=== PATIENT | male | born 1995 | race Caucasian/White ===

== ENCOUNTER 2018-10-03 15:54 | Emergency (ER) | payer BC, OTHER ==
[~2018-10-03] VITALS: Ht 188 cm; Wt 221.1 kg
[2018-10-03] MEDS ORDERED: ASPIRIN 81 MG CHEW (CHILDREN'S ASA) PO ONE (16:15)
[2018-10-03 16:22] LABS: BASOPHILS # (AUTO) 0.1 10^3/uL (0.0-0.1); BASOPHILS % (AUTO) 1 % (0-10); EOSINOPHILS # (AUTO) 0.1 10^3/uL (0.0-0.3); EOSINOPHILS % (AUTO) 1 % (0-10); HEMATOCRIT 47 % (40-54); HEMOGLOBIN 15.8 G/DL (13.3-17.7); LYMPHOCYTES # (AUTO) 1.6 X 10^3 (1.0-4.0); LYMPHOCYTES % (AUTO) 19 % (12-44); MEAN CORPUSCULAR HEMOGLOBIN 29 PG (25-34); MEAN CORPUSCULAR HGB CONC 33 G/DL (32-36); MEAN CORPUSCULAR VOLUME 88 FL (80-99); MEAN PLATELET VOLUME 11.1 FL (7.4-10.4); MONOCYTES # (AUTO) 0.9 X 10^3 (0.0-1.0); MONOCYTES % (AUTO) 10 % (0-12); NEUTROPHILS % (AUTO) 70 % (42-75); PLATELET COUNT 336 10^3/uL (130-400); RED CELL DISTRIBUTION WIDTH 13.1 % (10.0-14.5); WHITE BLOOD COUNT 8.6 10^3/uL (4.3-11.0)
[2018-10-03 16:41] LABS: ALANINE AMINOTRANSFERASE 48 U/L (0-55); ALBUMIN 4.6 GM/DL (3.2-4.5); ALKALINE PHOSPHATASE 64 U/L (40-136); BUN/CREATININE RATIO 14; CALCIUM 10.2 MG/DL (8.5-10.1); CARBON DIOXIDE 17 MMOL/L (21-32); CHLORIDE 105 MMOL/L (98-107); CREATININE SERUM 0.87 MG/DL (0.60-1.30); GFR ESTIMATED > 60; GLUCOSE 85 MG/DL (70-105); POTASSIUM 4.4 MMOL/L (3.6-5.0); SODIUM 137 MMOL/L (135-145); TOTAL PROTEIN 8.2 GM/DL (6.4-8.2)
--- NOTE | 2018-10-03 16:54 | Diagnostic Imaging Report ---
EXAM: Chest 1 view, AP/PA only. INDICATION: Chest pain. COMPARISON: None. FINDINGS: Normal heart size and central pulmonary vascularity. No focal pulmonary opacity, pleural effusion or pneumothorax. No acute osseous findings. IMPRESSION: No acute cardiopulmonary findings. Dictated by: Dictated on workstation # [id number]
[2018-10-03 17:07] LABS: INR 1.1 (0.8-1.4); PROTHROMBIN TIME PATIENT 14.3 SEC (12.2-14.7)
--- NOTE | 2018-10-03 17:09 | ED Chest Pain ---
General Chief Complaint: Chest Pain Stated Complaint: CHEST POUNDING/L ARM NUMB Nursing Triage Note: PATIENT AMBULATORY TO ER WITH COMPLAINT OF CHEST PAIN TO LEFT CHEST RADIATING INTO THE LEFT ARM. PATIENT STATES HE HAS HAD INTERMITTENT CHEST PAIN FOR SEVERAL WEEKS BUT TODAY IT IS WORSE THAN NORMAL. HE HAS ALSO HAD SHORTNESS OF BREATH AND FATIGUE TODAY. 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 PATIENT IS ALSO COMPLAINING OF INTERMITTENT PAIN TO RIGHT CALF. Nursing Sepsis Screen: No Definite Risk Source: patient Exam Limitations: no limitations History of Present Illness Date Seen by Provider: Oct 03, 2018 Time Seen by Provider: 16:00 Initial Comments This 23-year-old young man presents to the emergency room with chest pain that radiates into his left arm. He has been having intermittently throughout the day and it worsened this afternoon. 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 He felt bad enough that he felt necessary to stop on his chart route and be seen here. He denies any history of heart disease. He does have hypertension and morbid obesity. He is working with his doctor on these issues. His pain is much dissipated now at this time. He rates it as about 3 out of 10. He also complains of some pain in the right calf which she attributes to sciatica. Allergies and Home Medications Allergies Coded Allergies: No Known Drug Allergies (Unverified , 10/03/18) Patient Home Medication List Home Medication List Reviewed: Yes Review of Systems Review of Systems Constitutional: no symptoms reported EENTM: No Symptoms Reported Respiratory: No Symptoms Reported Cardiovascular: See HPI Gastrointestinal: No Symptoms Reported Genitourinary: No Symptoms Reported Musculoskeletal: no symptoms reported Skin: no symptoms reported Psychiatric/Neurological: No Symptoms Reported Endocrine: No Symptoms Reported Hematologic/Lymphatic: No Symptoms Reported Past Ksnfypa-Ntocio-Clknlc Hx Past Med/Social Hx: Reviewed and Corrections made Patient Social History Alcohol Use: Denies Use Recreational Drug Use: No Smoking Status: Never a Smoker 2nd Hand Smoke Exposure: No Recent Foreign Travel: No Contact w/Someone Who Travel: No Recent Infectious Disease Expo: No Recent Hopitalizations: No Immunizations Up To Date PED Vaccines UTD: Yes Seasonal Allergies Seasonal Allergies: No Past Medical History Surgeries: No Respiratory: No Cardiac: Yes Hypertension Neurological: No Genitourinary: No Gastrointestinal: No Musculoskeletal: No Endocrine: Yes (morbid obesity) HEENT: No Cancer: No Psychosocial: No Integumentary: No Blood Disorders: No Physical Exam Vital Signs Vital Signs - First Documented 10/03/18 15:55 Temp 98.4 Pulse 97 Resp 22 B/P (MAP) 183/97 (125) Pulse Ox 97 O2 Delivery Room Air Capillary Refill : Less Than 3 Seconds Height, Weight, BMI Height: 6'2.00" Weight: 487lbs. 8.0oz. 221.577952by; BMI Method:Actual General Appearance: WD/WN, Mild Distress, Obese HEENT: PERRL/EOMI, Normal ENT Inspection Neck: Normal Inspection Respiratory: Lungs Clear, Normal Breath Sounds, No Accessory Muscle Use, No Respiratory Distress, Other (slight tenderness in the left lateral chest wall near the axilla) Cardiovascular: Regular Rate, Rhythm, No Edema, No Murmur Gastrointestinal: Normal Bowel Sounds, Non Tender, Soft Extremity: Normal Capillary Refill, Normal Inspection, Non Tender, No Pedal Edema, Other (negative Yuan) Neurologic/Psychiatric: Alert, Oriented x3, No Motor/Sensory Deficits, Normal Mood/Affect, sleep lab technologist II-XII Norm as Tested Skin: Normal Color, Warm/Dry Progress/Results/Core Measures Results/Orders Lab Results Laboratory Tests Test 10/03/18 16:15 10/03/18 16:49 10/03/18 17:09 Range/Units White Blood Count 8.6 4.3-11.0 10^3/uL Red Blood Count 5.40 4.35-5.85 10^6/uL Hemoglobin 15.8 13.3-17.7 G/DL Hematocrit 47 40-54 % Mean Corpuscular Volume 88 80-99 FL Mean Corpuscular Hemoglobin 29 25-34 PG Mean Corpuscular Hemoglobin Concent 33 32-36 G/DL Red Cell Distribution Width 13.1 10.0-14.5 % Platelet Count 336 130-400 10^3/uL Mean Platelet Volume 11.1 H 7.4-10.4 FL Neutrophils (%) (Auto) 70 42-75 % Lymphocytes (%) (Auto) 19 12-44 % Monocytes (%) (Auto) 10 0-12 % Eosinophils (%) (Auto) 1 0-10 % Basophils (%) (Auto) 1 0-10 % Neutrophils # (Auto) 6.0 1.8-7.8 X 10^3 Lymphocytes # (Auto) 1.6 1.0-4.0 X 10^3 Monocytes # (Auto) 0.9 0.0-1.0 X 10^3 Eosinophils # (Auto) 0.1 0.0-0.3 10^3/uL Basophils # (Auto) 0.1 0.0-0.1 10^3/uL Sodium Level 137 135-145 MMOL/L Potassium Level 4.4 3.6-5.0 MMOL/L Chloride Level 105 98-107 MMOL/L Carbon Dioxide Level 17 L 21-32 MMOL/L Anion Gap 15 H 5-14 MMOL/L Blood Urea Nitrogen 12 7-18 MG/DL Creatinine 0.87 0.60-1.30 MG/DL Estimat Glomerular Filtration Rate > 60 BUN/Creatinine Ratio 14 Glucose Level 85 70-105 MG/DL Calcium Level 10.2 H 8.5-10.1 MG/DL Corrected Calcium 8.5-10.1 MG/DL Magnesium Level 2.0 1.8-2.4 MG/DL Total Bilirubin 2.0 H 0.1-1.0 MG/DL Aspartate Amino Transf (AST/SGOT) 33 5-34 U/L Alanine Aminotransferase (ALT/SGPT) 48 0-55 U/L Alkaline Phosphatase 64 40-136 U/L Myoglobin 63.9 10.0-92.0 NG/ML Troponin I < 0.028 <0.028 NG/ML Total Protein 8.2 6.4-8.2 GM/DL Albumin 4.6 H 3.2-4.5 GM/DL Prothrombin Time 14.3 12.2-14.7 SEC INR Comment 1.1 0.8-1.4 Activated Partial Thromboplast Time 32 24-35 SEC D-Dimer < 0.27 0.00-0.49 UG/ML Urine Opiates Screen NEGATIVE NEGATIVE Urine Oxycodone Screen NEGATIVE NEGATIVE Urine Methadone Screen NEGATIVE NEGATIVE Urine Propoxyphene Screen NEGATIVE NEGATIVE Urine Barbiturates Screen NEGATIVE NEGATIVE Ur Tricyclic Antidepressants Screen NEGATIVE NEGATIVE Urine Phencyclidine Screen NEGATIVE NEGATIVE Urine Amphetamines Screen NEGATIVE NEGATIVE Urine Methamphetamines Screen NEGATIVE NEGATIVE Urine Benzodiazepines Screen NEGATIVE NEGATIVE Urine Cocaine Screen NEGATIVE NEGATIVE Urine Cannabinoids Screen NEGATIVE NEGATIVE My Orders Orders - ALAYNA NDIAYE MD Cbc With Automated Diff (10/03/18 16:07) Magnesium (10/03/18 16:07) Chest 1 View, Ap/Pa Only (10/03/18 16:07) Ekg Tracing (10/03/18 16:07) Cardiac Profile 1 (10/03/18 16:07) Comprehensive Metabolic Panel (10/03/18 16:07) Myoglobin Serum (10/03/18 16:07) Protime With Inr (10/03/18 16:07) Partial Thromboplastin Time (10/03/18 16:07) O2 (10/03/18 16:07) Monitor-Rhythm Ecg Trace Only (10/03/18 16:07) Ed Iv/Invasive Line Start (10/03/18 16:07) Aspirin Chewable Tablet (Baby Aspirin Ch (10/03/18 16:15) Fibrin Degradation Products (10/03/18 16:12) Drug Screen Stat (Urine) (10/03/18 17:09) Medications Given in ED Current Medications Medications Dose Ordered Sig/Shania Route Start Time Stop Time Status Last Admin Dose Admin Aspirin 324 mg ONCE ONCE PO 10/03/18 16:15 10/03/18 16:16 DC 10/03/18 16:16 324 MG Vital Signs/I&O 10/03/18 10/03/18 15:55 18:40 Temp 98.4 Pulse 97 86 Resp 22 18 B/P (MAP) 183/97 (125) 144/83 (103) Pulse Ox 97 96 O2 Delivery Room Air Room Air Blood Pressure Mean: 125 Progress Progress Note : Progress Note Chest pain order set was used to evaluate his chest pain. Aspirin 324 mg was given. D-dimer was negative. EKG and troponin were negative. Nitroglycerin was recommended to further assess his chest pain. Patient declined and wished to sign out AGAINST MEDICAL ADVICE as his grandfather was not doing well. He felt he needed to get home quickly to his grandfather. I explained the risks of leaving AGAINST MEDICAL ADVICE before workup is complete. Patient expressed understanding and knows that he may have serious health consequences from leaving before workup is complete. I had planned to repeat a troponin at a 3 hour alida. Initial ECG Impression Date: Oct 03, 2018 Initial ECG Impression Time: 15:58 Initial ECG Rate: 98 Initial ECG Rhythm: Normal Sinus Comment Sinus rhythm with no ST elevation or depression. Slightly prolonged QT interval. No axis deviation. Diagnostic Imaging Diagonstic Imaging: Xray Plain Films/CT/US/NM/MRI: chest Comments Chest x-ray viewed by me and report reviewed. See report below: NAME: KAJAL KENNEDY [facility] REC#: [id number] PT STATUS: REG ER : 1995 PHYSICIAN: ALAYNA NDIAYE MD ADMIT DATE: 10/03/18/ER Draft Date of Exam:10/03/18 CHEST 1 VIEW, AP/PA ONLY EXAM: Chest 1 view, AP/PA only. INDICATION: Chest pain. COMPARISON: None. FINDINGS: Normal heart size and central pulmonary vascularity. No focal pulmonary opacity, pleural effusion or pneumothorax. No acute osseous findings. IMPRESSION: No acute cardiopulmonary findings. Dictated on workstation # [id number] Dict: 10/03/18 1648 Trans: 10/03/18 1654 [facility] [id number] Interpreted by: HERO OTOOLE MD Departure Impression Primary Impression: Chest pain Qualified Codes: R07.9 - Chest pain, unspecified Additional Impressions: Essential hypertension Obesity Qualified Codes: E66.01 - Morbid (severe) obesity due to excess calories; Z68.44 - Body mass index (bmi) 60.0-69.9, adult Disposition: 07 AGAINST MEDICAL ADVICE Condition: Against Medical Advice Departure-Patient Inst. Referrals: NO,LOCAL PHYSICIAN (PCP/Family) Primary Care Physician Patient Instructions: Chest Pain (DC) Add. Discharge Instructions: Please be advised relieving before her workup is complete and your safety cannot be guaranteed. Consequences of leaving before the workup is complete may include worsening of your condition or possibly . Please return to care if your symptoms worsen again and follow up with your primary care provider soon as possible. Take aspirin 81 mg daily until otherwise instructed by your doctor. If any activity causes chest pain, stop and rest. If resting does not resolve the chest pain, return to care. Continue to work with your doctor on weight loss. All discharge instructions reviewed with patient and/or family. Voiced understanding. ALAYNA NDIAYE MD Oct 03, 2018 17:09
[2018-10-03 17:34] LABS: AMPHETAMINE SCREEN, URINE NEGATIVE (NEGATIVE); BARBITURATE SCREEN URINE NEGATIVE (NEGATIVE); BENZODIAZEPINES SCREEN URINE NEGATIVE (NEGATIVE); CANNABINOID SCREEN, URINE NEGATIVE (NEGATIVE); COCAINE SCREEN URINE NEGATIVE (NEGATIVE); METHADONE STAT NEGATIVE (NEGATIVE); METHAMPHETAMINE SCREEN URINE S NEGATIVE (NEGATIVE); OPIATE SCREEN URINE NEGATIVE (NEGATIVE); OXYCODONE STAT NEGATIVE (NEGATIVE); PROPOXYPHENE STAT NEGATIVE (NEGATIVE); TRICYCLIC ANTIDEPRESSANTS SCRE NEGATIVE (NEGATIVE)
[2018-10-03 18:40] VITALS: BP 144/83
== END 2018-10-03 18:42 | disposition left against medical advice (07) ==
LOC: ER 15:55
DX: R07.9 Chest pain, unspecified (principal); I10 Essential (primary) hypertension; E66.01 Morbid (severe) obesity due to excess calories; Z68.44 Body mass index [BMI] 60.0-69.9, adult
CPT/HCPCS: 36415; 71045; 80053; 80306; 83735; 83874; 84484; 85025; 85379; 85610; 85730